=== PATIENT | male | born 1940 | race Caucasian/White ===

== ENCOUNTER → 2020-04-08 16:11 | Outpatient (REF) | payer MEDICARE, OTHER, SELFPAY | LOC: ANHLAB 16:11 | PROVIDERS: Visit Provider Surgery Plastic and Reconstructive Surgery | DX: D49.2 Neoplasm of unspecified behavior of bone, soft tissue, and skin (principal) | CPT/HCPCS: 88305 ==

== ENCOUNTER → 2021-09-05 08:20 | Outpatient (REF) | payer MEDICARE, SELFPAY | LOC: ANHLAB 08:20 | PROVIDERS: PCP Family Medicine; Visit Provider Nurse Practitioner | DX: C44.222 Squamous cell carcinoma of skin of right ear and external auricular canal (principal) | CPT/HCPCS: 88305; 88331 ==